=== PATIENT | female | born 1985 | race Caucasian/White ===

== ENCOUNTER 2019-05-06 19:21 | Emergency (ER) | payer OTHER ==
--- NOTE | 2019-05-06 19:53 | EDM.PDOC ---
ED HPI GENERAL MEDICAL PROBLEM - General Chief Complaint: ENT Problem Stated Complaint: Bleeding post op T/A Time Seen by Provider: 05/06/19 19:30 Source of Information: Reports: Patient History Limitations: Reports: No Limitations - History of Present Illness INITIAL COMMENTS - FREE TEXT/NARRATIVE: patient had tonsilectomy 1 week ago. She was startled and screamed and since has been bleeding from her throat. States she has been spitting up bright red blood but feels it running down with back of her throat. Onset: Sudden Onset Date: 05/06/19 Duration: Constant Improves with: Reports: None Worsens with: Reports: None Associated Symptoms: Reports: No Other Symptoms - Related Data Allergies Allergy/AdvReac Type Severity Reaction Status Date / Time Sulfa (Sulfonamide Allergy Rash Verified 05/06/19 19:51 Antibiotics) Home Meds: Home Meds DULoxetine [Cymbalta] 60 mg PO DAILY 05/06/19 [History] Ibuprofen 400 mg PO Q4H 05/06/19 [History] ED ROS ENT - Review of Systems Review Of Systems: See Below Constitutional: Reports: No Symptoms HEENT: Reports: Throat Pain Respiratory: Reports: No Symptoms Cardiovascular: Reports: No Symptoms Endocrine: Reports: No Symptoms GI/Abdominal: Reports: No Symptoms : Reports: No Symptoms Musculoskeletal: Reports: No Symptoms Skin: Reports: No Symptoms Neurological: Reports: No Symptoms ED EXAM, ENT - Physical Exam Exam: See Below Exam Limited By: No Limitations General Appearance: Alert, WD/WN, No Apparent Distress Mouth/Throat: Normal Inspection, Normal Gums, Normal Lips, Bleeding (to left posterior oropharynx she vomitied a large blood clot ) Respiratory/Chest: No Respiratory Distress, Lungs Clear Cardiovascular: Regular Rate, Rhythm Course - Vital Signs Last Recorded V/S: Last Vital Signs Temp 36.2 C 05/06/19 19:21 Pulse 108 H 05/06/19 19:21 Resp 20 05/06/19 19:21 BP 144/98 H 05/06/19 19:21 Pulse Ox 98 05/06/19 19:21 Departure - Departure Time of Disposition: 20:00 Disposition: DC/Tfer to Acute Hospital 02 Condition: Good Clinical Impression: Post-tonsillectomy hemorrhage - Discharge Information *PRESCRIPTION DRUG MONITORING PROGRAM REVIEWED*: No *COPY OF PRESCRIPTION DRUG MONITORING REPORT IN PATIENT AURE: No Referrals: Alison Mello DO [Primary Care Provider] - Forms: ED Department Discharge, Interfacility Transfer EMTALA Additional Instructions: patient to transfer via private vehicle to [place] in [place]. Dr Barnes is the accepting Sepsis Event Note - Focused Exam Vital Signs: Vital Signs Temp Pulse Resp BP Pulse Ox 05/06/19 19:21 36.2 C 108 H 20 144/98 H 98 Date Exam was Performed: 05/06/19 Time Exam was Performed: 19:55
== END 2019-05-06 20:02 | disposition short-term general hospital (02) ==
LOC: VM.ED 19:21
DX: J95.830 Postprocedural hemorrhage of a respiratory system organ or structure following a respiratory system procedure (principal); Z88.2 Allergy status to sulfonamides; Z79.899 Other long term (current) drug therapy
CPT/HCPCS: 99284

== ENCOUNTER 2020-12-14 19:59 | Emergency (ER) | payer BC, OTHER ==
[2020-12-14 20:40] LABS: CHLORIDE,CL 104 mmol/L (98-107); SODIUM,NA 138 mmol/L (136-145)
[2020-12-14 20:58] LABS: ANION GAP 13.7 mmol/L (5-15)
--- NOTE | 2020-12-14 21:23 | EDM.PDOC ---
ED HPI GENERAL MEDICAL PROBLEM - General Time Seen by Provider: 12/14/20 21:16 Source of Information: Reports: Patient, Family (), RN, RN Notes Reviewed History Limitations: Reports: No Limitations - History of Present Illness INITIAL COMMENTS - FREE TEXT/NARRATIVE: Patient is a 35-year-old female who presents to ER with complaint of vaginal bleeding since . She states the clotting has increased today and the cr amping of the lower abdomen has increased as well. Patient is unsure of chances of , states she and her have been trying for quite some time. States her menses have been irregular and have differed in flow, although states this is the heaviest it has ever been. Patient states she has been diagnosed with polycystic ovarian disease. Patient was seen by provider at [facility] in [place] approximately 3 weeks ago and did have a CT of the abdomen pelvis which showed bilateral adnexal cysts. The largest cyst is on the right measuring up to 4.6cm. Incidental finding of hepatic steatosis and colonic diverticulosis without diverticulitis. Patient admits to fatigue. Denies fever or chills. Admits to diarrhea for the past month, and nausea from time to time without vomiting. Onset: Gradual Low abdomen Pain Score (Numeric/FACES): 7 - Related Data Allergies Allergy/AdvReac Type Severity Reaction Status Date / Time Sulfa (Sulfonamide Allergy Rash Verified 12/14/20 21:40 Antibiotics) Home Meds: Home Meds DULoxetine [Cymbalta] 60 mg PO DAILY 05/06/19 [History] Ibuprofen 400 mg PO Q4H 05/06/19 [History] Past Medical History Psychiatric History: Reports: Depression - Past Surgical History HEENT Surgical History: Reports: Adenoidectomy, Tonsillectomy Other HEENT Surgeries/Procedures: 04/29/19 T/A ED ROS GENERAL - Review of Systems Review Of Systems: Comprehensive ROS is negative, except as noted in HPI. ED EXAM, GENERAL - Physical Exam Exam: See Below Exam Limited By: No Limitations General Appearance: Alert, WD/WN, Anxious, Mild Distress Eye Exam: Bilateral Eye: EOMI, Normal Inspection Ears: Normal External Exam, Hearing Grossly Normal Nose: Normal Inspection Throat/Mouth: Normal Inspection, Normal Voice, No Airway Compromise Head: Atraumatic, Normocephalic Neck: Normal Inspection, Supple, Non-Tender, Full Range of Motion Respiratory/Chest: No Respiratory Distress, Lungs Clear, Normal Breath Sounds, No Accessory Muscle Use, Chest Non-Tender Cardiovascular: Normal Peripheral Pulses, Regular Rate, Rhythm, No Edema, No Gallop, No JVD, No Murmur, No Rub Peripheral Pulses: 2+: Radial (L), Radial (R) GI/Abdominal: Normal Bowel Sounds, Soft, Guarding, Tender (RLQ, LLQ) (Female) Exam: Normal External Exam, Adnexal Tenderness, Vaginal Bleeding, Other (small to moderate clots) Rectal (Female) Exam: Deferred Back Exam: Normal Inspection, Full Range of Motion, NT Extremities: Normal Inspection, Normal Range of Motion, Non-Tender, Normal Capillary Refill, No Pedal Edema Neurological: Alert, Oriented, CN II-XII Intact, Normal Cognition, Normal Gait, Normal Reflexes, No Motor/Sensory Deficits Psychiatric: Normal Affect, Normal Mood Skin Exam: Warm, Dry, Intact, Normal Color, No Rash Lymphatic: No Adenopathy Course - Vital Signs Last Recorded V/S: Last Vital Signs Temp 98.2 F 12/14/20 19:59 Pulse 92 12/14/20 21:50 Resp 16 12/14/20 21:50 BP 133/90 12/14/20 21:50 Pulse Ox 96 12/14/20 19:59 - Orders/Labs/Meds Orders: Active Orders 24 hr Category Date Time Status CULTURE URINE [RM] Stat Lab 12/14/20 21:26 Received Labs: Laboratory Tests 12/14/20 12/14/20 12/14/20 Range/Units 20:15 20:15 20:15 WBC 15.2 H (4.0-10.0) x10^3/uL RBC 4.91 (4.00-5.50) x10^6/uL Hgb 14.0 (12.0-16.0) g/dL Hct 41.9 (33.0-47.0) % MCV 85.3 (78.0-93.0) fL MCH 28.5 (26.0-32.0) pg MCHC 33.4 (32.0-36.0) g/dL RDW Coeff of Aleksandr 14.0 (10.0-15.0) % Plt Count 377 (130-400) x10^3/uL Immature Gran % (Auto) 0.20 (0.00-0.43) % Neut % (Auto) 69.5 (50.0-80.0) % Lymph % (Auto) 23.3 L (25.0-50.0) % [place] % (Auto) 3.6 (2.0-11.0) % Eos % (Auto) 3.2 (0.0-4.0) % Baso % (Auto) 0.2 (0.2-1.2) % Neut # (Auto) 10.6 H (1.8-7.7) x10^3/uL Lymph # (Auto) 3.5 (1.0-4.8) x10^3/uL [place] # (Auto) 0.6 (0.0-0.8) x10^3/uL Eos # (Auto) 0.5 (0.0-0.5) x10^3/uL Baso # (Auto) 0.0 (0.0-0.2) x10^3/uL Immature Gran # (Auto) 0.03 (0.00-0.07) x10^3/uL PT 10.0 (9.9-12.5) SEC INR 0.9 L (2.0-3.5) Sodium 138 (136-145) mmol/L Potassium 3.7 (3.5-5.1) mmol/L Chloride 104 (98-107) mmol/L Carbon Dioxide 24 (21-32) mmol/L Anion Gap 13.7 (5-15) mmol/L BUN 10 (7-18) mg/dL Creatinine 0.9 (0.55-1.02) mg/dL Est Cr Clr Drug Dosing TNP Estimated GFR (MDRD) > 60 Glucose 170 H (70-99) mg/dL Calcium 8.5 (8.5-10.1) mg/dL Corrected Calcium 9.1 (8.5-10.1) mg/dL Total Bilirubin 0.2 (0.2-1.0) mg/dL AST 26 (15-37) U/L ALT 47 (14-59) U/L Alkaline Phosphatase 91 (46-116) U/L Total Protein 7.3 (6.4-8.2) g/dL Albumin 3.2 L (3.4-5.0) g/dL Globulin 4.1 Albumin/Globulin Ratio 0.78 Urine Color (YELLOW) Urine Appearance (CLEAR) Urine pH (5.0-8.0) Ur Specific [place] Urine Protein (NEGATIVE) mg/dL Urine Glucose (UA) (NEGATIVE) mg/dL Urine Ketones (NEGATIVE) mg/dL Urine Occult Blood (NEGATIVE) Urine Nitrite (NEGATIVE) Urine Bilirubin (NEGATIVE) Urine Urobilinogen (0.2) EU/dL Ur Leukocyte Esterase (NEGATIVE) Urine RBC (NOT SEEN) /HPF Urine WBC (NOT SEEN) /HPF Ur Squamous Epith Cells (NOT SEEN) /HPF Urine Bacteria (NOT SEEN) /HPF Urine Mucus (NOT SEEN) /LPF Urine HCG, Qual (NEGATIVE) 12/14/20 12/14/20 Range/Units 21:26 21:26 WBC (4.0-10.0) x10^3/uL RBC (4.00-5.50) x10^6/uL Hgb (12.0-16.0) g/dL Hct (33.0-47.0) % MCV (78.0-93.0) fL MCH (26.0-32.0) pg MCHC (32.0-36.0) g/dL RDW Coeff of Aleksandr (10.0-15.0) % Plt Count (130-400) x10^3/uL Immature Gran % (Auto) (0.00-0.43) % Neut % (Auto) (50.0-80.0) % Lymph % (Auto) (25.0-50.0) % [place] % (Auto) (2.0-11.0) % Eos % (Auto) (0.0-4.0) % Baso % (Auto) (0.2-1.2) % Neut # (Auto) (1.8-7.7) x10^3/uL Lymph # (Auto) (1.0-4.8) x10^3/uL [place] # (Auto) (0.0-0.8) x10^3/uL Eos # (Auto) (0.0-0.5) x10^3/uL Baso # (Auto) (0.0-0.2) x10^3/uL Immature Gran # (Auto) (0.00-0.07) x10^3/uL PT (9.9-12.5) SEC INR (2.0-3.5) Sodium (136-145) mmol/L Potassium (3.5-5.1) mmol/L Chloride (98-107) mmol/L Carbon Dioxide (21-32) mmol/L Anion Gap (5-15) mmol/L BUN (7-18) mg/dL Creatinine (0.55-1.02) mg/dL Est Cr Clr Drug Dosing Estimated GFR (MDRD) Glucose (70-99) mg/dL Calcium (8.5-10.1) mg/dL Corrected Calcium (8.5-10.1) mg/dL Total Bilirubin (0.2-1.0) mg/dL AST (15-37) U/L ALT (14-59) U/L Alkaline Phosphatase (46-116) U/L Total Protein (6.4-8.2) g/dL Albumin (3.4-5.0) g/dL Globulin Albumin/Globulin Ratio Urine Color Red H (YELLOW) Urine Appearance Turbid H (CLEAR) Urine pH 5.5 (5.0-8.0) Ur Specific [place] 1.020 Urine Protein 100 H (NEGATIVE) mg/dL Urine Glucose (UA) Negative (NEGATIVE) mg/dL Urine Ketones 15 H (NEGATIVE) mg/dL Urine Occult Blood Large H (NEGATIVE) Urine Nitrite Positive H (NEGATIVE) Urine Bilirubin Moderate H (NEGATIVE) Urine Urobilinogen 1.0 (0.2) EU/dL Ur Leukocyte Esterase Negative (NEGATIVE) Urine RBC Packed H (NOT SEEN) /HPF Urine WBC Not seen (NOT SEEN) /HPF Ur Squamous Epith Cells Not seen (NOT SEEN) /HPF Urine Bacteria Not seen (NOT SEEN) /HPF Urine Mucus Not seen (NOT SEEN) /LPF Urine HCG, Qual Negative (NEGATIVE) Meds: Medications Discontinued Medications Generic Name Dose Route Start Last Admin Trade Name Freq PRN Reason Stop Dose Admin Cephalexin 500 mg 12/14/20 21:57 12/14/20 22:02 Cephalexin 500 Mg Cap PO 12/14/20 21:58 500 mg ONETIME ONE Administration - Re-Assessments/Exams Free Text/Narrative Re-Assessment/Exam: 12/14/20 21:54 Discussed patient case with Dr. Lawrence at [facility] who states he would treat the patient with antibiotics for the UTI and Toradol for the cramping. He states she does not need an ultrasound tonight. He recommends she follow up with her primary care provider for outpatient US and also needs to follow up with Gynecology. Departure - Departure Time of Disposition: 22:09 Disposition: Home, Self-Care 01 Condition: Fair Clinical Impression: Dysmenorrhea UTI (urinary tract infection) Qualifiers: Urinary tract infection type: acute cystitis Hematuria presence: with hematuria Qualified Code(s): N30.01 - Acute cystitis with hematuria Ovarian cyst Qualifiers: Laterality: bilateral Qualified Code(s): N83.201 - Unspecified ovarian cyst, right side; N83.202 - Unspecified ovarian cyst, left side Menorrhagia Qualifiers: Menorrhagia type: with irregular cycle Qualified Code(s): N92.1 - Excessive and frequent menstruation with irregular cycle - Discharge Information *PRESCRIPTION DRUG MONITORING PROGRAM REVIEWED*: No *COPY OF PRESCRIPTION DRUG MONITORING REPORT IN PATIENT AURE: No Instructions: Ovarian Cyst, [id number], Urinary Tract Infection, Adult, [id number], Dysmenorrhea, [id number], Menorrhagia, [id number] Referrals: Alison Mello DO [Primary Care Provider] - Additional Instructions: Drink plenty of water Rx: Cephalexin 500 mg 1 orally twice daily for 7 days Follow-up with Dr. Adhikari tomorrow Follow-up with gynecology May use ibuprofen up to 800 mg every 8 hours as needed for pain Elevate your feet to decrease swelling Return to ER with any worsening of symptoms Sepsis Event Note (ED) - Focused Exam Vital Signs: Vital Signs Temp Pulse Resp BP Pulse Ox 12/14/20 21:50 92 16 133/90 12/14/20 19:59 98.2 F 102 H 20 174/117 H 96 - My Orders Last 24 Hours: My Active Orders 12/14/20 21:26 CULTURE URINE [RM] Stat - Assessment/Plan Last 24 Hours: My Active Orders 12/14/20 21:26 CULTURE URINE [RM] Stat
[2020-12-14] MEDS: Cephalexin 500 MG Cap PO ONE (22:02)
== END 2020-12-14 22:27 | disposition home or self-care (01) ==
LOC: VM.ED 19:59
DX: N30.01 Acute cystitis with hematuria (principal); N83.201 Unspecified ovarian cyst, right side; N92.1 Excessive and frequent menstruation with irregular cycle; N94.6 Dysmenorrhea, unspecified; Z88.2 Allergy status to sulfonamides
CPT/HCPCS: 36415; 80053; 81001; 81025; 85025; 85610; 87086; 99284; A9270-GY

== ENCOUNTER 2021-05-08 19:09 | Emergency (ER) | payer BC ==
[2021-05-08] MEDS ORDERED: Sodium Chloride 0.9% 1,000 ML IV ONE (19:22)
[2021-05-08] MEDS ORDERED: Sodium Chloride 0.9% 10 ML Syringe FLUSH PRN (19:22)
[2021-05-08] MEDS ORDERED: Ondansetron 4 MG/2 ML SDV IVPUSH ONE (19:38)
[2021-05-08 20:11] LABS: CHLORIDE,CL 102 mmol/L (98-107); SODIUM,NA 141 mmol/L (136-145)
[2021-05-08 20:12] LABS: ANION GAP 15.1 mmol/L (5-15)
== END 2021-05-08 22:00 | disposition home or self-care (01) ==
LOC: VM.ED 19:09
DX: K52.9 Noninfective gastroenteritis and colitis, unspecified (principal); Z88.2 Allergy status to sulfonamides; Z86.16 Personal history of COVID-19
CPT/HCPCS: 74176; 80053; 85025; 85652; 86140; 96374; 99283; 99284-25; J2405; J7030